=== PATIENT | male | born 1990 | race Caucasian/White ===

== ENCOUNTER → 2023-07-26 06:30 | Day surgery (SDC) | payer OTHER, SELFPAY | LOC: GI 06:30 | PROVIDERS: ATTENDING PHYSICIAN Internal Medicine Gastroenterology | DX: D12.3 Benign neoplasm of transverse colon (principal); K57.30 Diverticulosis of large intestine without perforation or abscess without bleeding; Z80.0 Family history of malignant neoplasm of digestive organs | CPT/HCPCS: 45385; 45380; 88305 ==

== ENCOUNTER 2024-12-19 08:22 | Emergency (ER) | payer OTHER, SELFPAY ==
[2024-12-19] VITALS (8 sets, daily range): BP systolic 130–150; BP diastolic 57–80; PULSE 57; O2SAT 98; BMI 35.7
--- NOTE | 2024-12-19 09:54 | ED.GENMED ---
History of Present Illness
General
Chief Complaint: Dizziness
Source: patient and spouse
Time Seen by Provider: 12/19/24 09:27
History of Present Illness
History of Present Illness:
34-year-old male with past medical history of hypertension, currently being treated for Lyme disease and obesity with doxycycline (on day 8) presenting to the ER for evaluation of vertigo-like symptoms that began over the last 12 hours, states worse
with any type of movement and accompanied with 1 episode of nausea/vomiting earlier this morning, still with the nausea. No headache, neck pain or stiffness, fevers. Patient states that about 3 weeks ago he started with the Lyme rash, went to the
provider network mgr prescribed a topical cream, when the rash did not get any better was tested for Lyme which came back positive with a diagnosis being confirmed yesterday. Patient and are unsure if symptoms today were related to the Lyme or
possible side effect from the antibiotic. Denies any history of similar. Social history noncontributory.
Past History
Past History
ED Past Medical History: HTN
ED Past Surgical History: None
Social History
Tobacco: Non-smoker
Alcohol: Occasional
Drug: None
Personal:
Living: with family
Review of Systems
Review of Systems
All Other Systems: ROS reviewed and negative except as documented in HPI and ROS
Phy Exam
Physical Exam
Physical Exam:
GENERAL: Alert , in no apparent distress
HEAD: Normocephalic atraumatic
EYE: pupils equal and reactive, 4 mm bilateral, EOMI, leftward horizontal nystagmus with reproducibility of patient's vertigo
NECK: Supple, no meningismus
ENT: o/p clr, mmm.
CARDIAC: Regular rate and rhythm .
LUNGS: Clear breath sounds bilaterally, no acute respiratory distress, no wheezes/rales/rhonchi
NEUROLOGICAL: Alert and oriented, no focal neuro deficits, no ataxia, moves all extremities, no sensory deficits
SKIN: Warm and dry, skin intact.
MUSCULOSKELETAL: No edema, well perfused.
PSYCH: Normal and appropriate interaction.
Scores
Heart Failure Risk
Heart Failure Risk Score: Not Applicable
Heart Score for Chest Pain Patients
STEMI patient?: Not applicable
Withdrawal Assessment of Alcohol
Withdrawal Assessment Completed?: Not applicable
Course
Orders/Labs/Results
Orders:
Orders
12/19/24 09:47
Meclizine [Antivert] 25 mg PO NOW STA
Ondansetron Injectable [Zofran] 4 mg IV NOW STA
Physical Therapy Consult [Pt Eval And Treat] Urgent
Treatment: vestibular therapy
Activity Level: Ambulate
12/19/24 09:48
Electrocardiogram (*1) Urgent
Reason for Study: Vertigo / Dizzy
EKG- Treatment ONCE
12/19/24 09:50
CT Head W/o Iv Contrast Urgent
Comment:
Reason For Exam: vertigo
12/19/24 10:04
Complete Blood Count/With Diff Urgent
Comprehensive Metabolic Panel Urgent
Magnesium Urgent
Abnormal Lab Results
12/19/24
10:04
RBC 4.58 L 10^6/uL
(4.70-6.10)
Hct 38.1 L %
(39.0-52.0)
Glucose 101 H mg/dl
(70-99)
12/19/24 10:04
12/19/24 10:04
Vital Signs
Initial and Last Documented VS:
Initial Vital Signs
Temp Pulse Resp BP Pulse Ox
97.6 F 63 16 143/80 98
12/19/24 08:29 12/19/24 08:29 12/19/24 08:29 12/19/24 08:29 12/19/24 08:29
Last Documented Vital Signs
Temp Pulse Resp BP Pulse Ox
97.6 F 56 14 132/67 98
12/19/24 08:29 12/19/24 12:00 12/19/24 12:00 12/19/24 12:00 12/19/24 12:00
Powerhouse Helper consulted with Physician
Powerhouse Helper consulted with physician?: Yes
Name of Physician Consulted: Jordana
MDM/Problems Addressed
Differential Diagnosis Includes:
BPPV
Labyrinthitis
Vestibular neuritis
Medication side effect
Lyme meningitis
CVA
Mass/malignancy
Electrolyte derangement
MDM/Problems Addressed:
34-year-old male presenting to the ER for evaluation of vertigo/lightheadedness that began earlier this morning accompanied with nausea and vomiting.. Patient does have a leftward horizontal nystagmus reproducible with head movement as well as
extraocular movements. Suspect peripheral form of vertigo, questionably induced by patient's current diagnosis of Lyme/Babesia. Will obtain labs, CT imaging. Treatment with meclizine and Zofran. Physical therapy vestibular consult ordered.
*Radiology
Radiology exam reviewed: radiology read reviewed
*Pulse Oximetry
SaO2: 98
Oxygen Mode of Delivery: Room air
Patient hypoxic: no
*Critical Care Note
Total Time (30-74mins, 75-104mins- exclusive of procedures): Not Applicable
Patient Management
Discussion with other providers: Other
Escalation/DeEscalation of care consider admission/obs:
Patient with improvement of symptoms following medication although still notes mildly symptomatic. Labs and CT imaging are encouraging. Patient seen by physical therapy who agrees that patient has a likely vestibular neuritis. Given his symptoms
started within the last 24 hours we will initiate patient on oral steroid. Will send home with prescription for Antivert as well as Zofran. Prescription for outpatient vestibular therapy provided. Stable for discharge home. Patient aware of
return precautions to the ER.
ED Attending Note
-
Portions of this chart may have been created with voice recognition software.� Occasional wrong word or��sound alike� substitutions may have occurred due to the inherent limitations of voice recognition software.
Discharge Plan
Departure
Patient Disposition: Home (Routine Discharge)
Date of Disposition: 12/19/24
Time of Disposition: 12:07
Patient with high blood pressure during this ER visit?: Yes
Discharge Problem:
Acute vestibular neuritis
Instructions: Vertigo (a Type of Dizziness) (DC)
Prescriptions:
New
prednisone 50 mg tablet
50 mg PO DAILY Qty: 5 0RF
meclizine 25 mg tablet
25 mg PO TID PRN (Reason: dizziness) Qty: 10 0RF
ondansetron 4 mg tablet,disintegrating
4 mg PO TIDPRN PRN (Reason: nausea/vomiting) Qty: 10 0RF
No Action
losartan 25 mg Tablet
25 mg PO DAILY
Referrals:
Hattie Olivia CRNP [Family Provider, Family Practice]
Interventions
Interventions:
*Risk Screen - Suicide Last Done: 12/19/24 08:29
*General Assessment Last Done: 12/19/24 09:06
*Neglect/Abuse Screening Last Done: 12/19/24 08:29
*ED- Fall Risk Assessment Last Done: 12/19/24 09:06
*ED COVID-19 Vaccine History Last Done: 12/19/24 09:06
*Nursing Disposition Last Done: 12/19/24 12:23
ED- Neurological Assessment Last Done: 12/19/24 09:06
ED- Cardiac Assessment Last Done: 12/19/24 09:06
Discharge Date and Time
Discharge Date/Time: 12/19/24 12:24
Print Language: LATVIAN
[2024-12-19] MEDS: ZOFRAN 4 MG IV (10:04)
[2024-12-19] MEDS: ANTIVERT 25 MG PO (10:05)
[2024-12-19 10:15] LABS: Hematocrit 38.1 % (39.0-52.0); Hemoglobin 13.0 g/dL (13.0-18.0); Mean Corp Hgb Conc. 34.1 g/dL (33.0-37.0); Mean Corpuscular Volume 83.2 fL (80.0-94.0); Nucleated Red Blood Cells % 0 % (-); Platelet Count 316 10^3/uL (130-400); Red Cell Dist. Width 12.5 % (11.5-14.5)
[2024-12-19 10:43] LABS: ALT (SGPT) 45 U/L (0-50); AST (SGOT) 27 U/L (17-59); Albumin 4.6 g/dl (3.5-5.0); Alkaline Phosphatase 44 U/L (38-126); Blood Urea Nitrogen 18 mg/dl (9-20); Calcium 9.2 mg/dl (8.4-10.2); Carbon Dioxide 25 mmol/L (22-30); Chloride 107 mmol/L (98-107); Estimated Creatinine Clearance > 125 ml/min; Glucose 101 mg/dl (70-99); Magnesium 2.0 mg/dl (1.6-2.3); Potassium 4.5 mmol/L (3.5-5.1); Sodium 139 mmol/L (135-145); Total Protein 7.8 g/dl (6.3-8.2); eGFR > 60.00
== END 2024-12-19 12:24 | disposition home or self-care (01) ==
LOC: EMR 08:22
PROVIDERS: Physician Assistant Medical; EMERGENCY PHYSICIAN Emergency Medicine; FAMILY PHYSICIAN Nurse Practitioner Family
DX: H93.3X9 Disorders of unspecified acoustic nerve (principal); R03.0 Elevated blood-pressure reading, without diagnosis of hypertension; H55.09 Other forms of nystagmus
CPT/HCPCS: 99285; 96374; 70450; 80053; 83735; 85025; 93005

== ENCOUNTER → 2024-12-24 14:23 | Outpatient (REF) | payer OTHER, SELFPAY ==
[2024-12-24 16:21] LABS: Hematocrit 43.4 % (39.0-52.0); Hemoglobin 14.8 g/dL (13.0-18.0); Mean Corp Hgb Conc. 34.1 g/dL (33.0-37.0); Mean Corpuscular Volume 83.3 fL (80.0-94.0); Nucleated Red Blood Cells % 0 % (-); Platelet Count 477 10^3/uL (130-400); Red Cell Dist. Width 12.9 % (11.5-14.5)
== END ==
LOC: REG 14:23
PROVIDERS: ATTENDING PHYSICIAN Nurse Practitioner Family
DX: B60.00 Babesiosis, unspecified (principal); A69.20 Lyme disease, unspecified
CPT/HCPCS: 36415; 85025

== ENCOUNTER 2024-12-29 15:00 | Outpatient (RCR) | payer OTHER, SELFPAY | END 2024-12-29 23:59 | disposition home or self-care (01) | LOC: RPT 15:00 | PROVIDERS: ATTENDING PHYSICIAN Nurse Practitioner Family | DX: H81.20 Vestibular neuronitis, unspecified ear (principal); R42 Dizziness and giddiness; Z73.6 Limitation of activities due to disability | CPT/HCPCS: 97112; 97116; 97163 ==

== ENCOUNTER 2025-01-16 07:23 | Outpatient (RCR) | payer OTHER, SELFPAY | END 2025-01-16 23:59 | disposition home or self-care (01) | LOC: RPT 07:23 | PROVIDERS: ATTENDING PHYSICIAN Nurse Practitioner Family | DX: H81.20 Vestibular neuronitis, unspecified ear (principal); R42 Dizziness and giddiness; Z73.6 Limitation of activities due to disability | CPT/HCPCS: 97112 ==

== ENCOUNTER → 2025-01-16 08:33 | Outpatient (REF) | payer OTHER, SELFPAY ==
[2025-01-16 09:12] LABS: Hematocrit 42.3 % (39.0-52.0); Hemoglobin 14.7 g/dL (13.0-18.0); Mean Corp Hgb Conc. 34.8 g/dL (33.0-37.0); Mean Corpuscular Volume 83.9 fL (80.0-94.0); Nucleated Red Blood Cells % 0 % (-); Platelet Count 342 10^3/uL (130-400); Red Cell Dist. Width 12.6 % (11.5-14.5)
[2025-01-16 10:01] LABS: Absolute Neutrophils -Man Diff 4.6 10^3/uL (1.4-6.5); Normal RBC Morphology Yes; Platelets Checked Yes
[2025-01-16 10:02] LABS: Total Cells Counted 100
== END ==
LOC: REG 08:33
PROVIDERS: ATTENDING PHYSICIAN Nurse Practitioner Family
DX: R79.89 Other specified abnormal findings of blood chemistry (principal)
CPT/HCPCS: 36415; 85025